=== PATIENT | female | born 1960 | race American Indian/Alaskan Native ===

== ENCOUNTER 2017-09-10 08:24 | Observation (INO) | payer BC ==
[2017-09-10 08:35] VITALS: BMI 32.9
[2017-09-10] MEDS ORDERED: Morphine 4 mg/ml ISec IVP STA ×3 (08:58→15:06)
--- NOTE | 2017-09-10 09:02 | ED PDOC ---
Arrival/HPI - General Chief Complaint: Back Pain Time Seen by Provider: 09/10/17 08:33 Historian: Patient, Spouse () - History of Present Illness Narrative History of Present Illness (Text): 09/10/17 09:00 A 57 year old female, whose past medical history includes hypertension, hyperlipidemia, fibromyalgia, and ovarian cancer, presents to the emergency department complaining of lower back pain for 1 week. Pain occurs right side radiating down to right buttock area. Patient reports seeing PMD and was referred to pain management. Patient has taken pain medications but has had no relief, and no relief from pain management therapy as well. Patient notes also experiencing suprapubic pain. Patient denies any diarrhea, any urinary symptoms , or any other complaints at this time. Also, patient mentions having had MRI in the past for similar complaint, however pain worse than it was before. Patient takes Percocet for fibromyalgia and pinched nerve in neck. Patient denies any chest pain or shortness of breath. Denies any dysuria or frequency. PMD: Dr. Amilcar Persaud Time/Duration: 1 week Symptom Onset: Sudden Symptom Course: Unchanged Past Medical History - Provider Review Nursing Documentation Reviewed: Yes - Infectious Disease Hx of Infectious Diseases: None - Reproductive Menopause: Yes - Cardiac Hx Hypertension: Yes - Musculoskeletal/Rheumatological Other/Comment: Pinched nerve in neck, rotator cuff tear. - Genitourinary/Gynecological Hx Ovarian Cancer: Yes - Psychiatric Hx Anxiety: No Hx Bipolar Disorder: No Hx Depression: No Hx Post Traumatic Stress Disorder: No Hx Schizophrenia: No Hx Substance Use: No - Surgical History Hx Section: Yes Other/Comment: Salping-oophorectomy - Anesthesia Hx Anesthesia: Yes Hx Anesthesia Reactions: No Hx Malignant Hyperthermia: No Family/Social History - Physician Review Nursing Documentation Reviewed: Yes Family/Social History: No Known Family HX Smoking Status: Never Smoked Hx Alcohol Use: No Hx Substance Use: No Allergies/Home Meds Allergies/Adverse Reactions: Allergies Penicillins Allergy (Verified 08/09/16 20:02) ANAPHYLAXIS Home Medications: Home Meds Medication Instructions Recorded Confirmed Ezetimibe [Zetia] 10 mg PO DAILY 06/08/15 06/08/15 Losartan [Cozaar] 50 mg PO DAILY 06/08/15 06/08/15 Oxycodone HCl/Acetaminophen 1 tab PO PRN PRN 06/08/15 06/08/15 [Percocet 10-325 mg Tablet] Review of Systems - Review of Systems Constitutional: absent: Fatigue, Fevers ENT: absent: Hearing Changes Respiratory: absent: SOB Cardiovascular: absent: Chest Pain Gastrointestinal: Abdominal Pain (suprapubic). absent: Diarrhea, Nausea, Vomiting Genitourinary Female: absent: Dysuria, Frequency, Hematuria, Urine Output Changes Musculoskeletal: Back Pain (lower back pain radiating down to right buttock area ) Skin: absent: Rash Neurological: absent: Headache, Dizziness, Focal Weakness Physical Exam - Physical Exam Narrative Physical Exam (Text): Head: Atraumatic. Normocephalic. Eyes: PERRL. EOMI. Conjunctivae are not pale. ENT: Mucous membranes are moist and intact. Oropharynx is clear and symmetric. Neck: Supple. Full ROM. No JVD. No lymphadenopathy. Cardiovascular: Regular rate. Regular rhythm. No murmurs, rubs, or gallops. Distal pulses are 2+ and symmetric. Pulmonary/Chest: No evidence of respiratory distress. Clear to auscultation bilaterally. No wheezing, rales or rhonchi. Abdominal: Mild suprapubic discomfort. Soft and non-distended. There is no tenderness. No rebound, guarding, or rigidity. No organomegaly. Good bowel sounds. No pulsatile masses. Back: No CVA tenderness. Pain to direct palpation to lower lumbar spine down to right buttock. No edema or erythema noted. Extremities: No edema. No cyanosis. No clubbing. Full range of motion in all extremities. No calf tenderness. Pain with straight leg raise to both legs. Skin: Skin is warm and dry. No petechiae. No purpura. Neurological: Alert, awake, and oriented. No saddle anesthesia. Motor and sensory exam intact. Psychiatric: Good eye contact. Normal interaction, affect, and behavior. Vital Signs Reviewed: Yes Vital Signs Temp Pulse Resp BP Pulse Ox 09/10/17 17:04 98.0 F 88 18 124/81 98 09/10/17 10:55 98.1 F 82 18 130/87 96 09/10/17 08:24 97.2 F L 91 H 18 152/94 H 99 Temperature: Afebrile Blood Pressure: Hypertensive Pulse: Regular Respiratory Rate: Normal Appearance: Positive for: Uncomfortable Pain Distress: Severe Mental Status: Positive for: Alert and Oriented X 3 Medical Decision Making ED Course and Treatment: 09/10/17 09:02 Impression: 57 year old female with lower back pain. Physical exam shows pain to palpation to lower lumbar spin down to right buttock; pain with straight leg test both legs; mild suprapubic discomfort. Differential Diagnosis included but are not limited to: Sciatica vs. Lumbar Disc Ridiculopathy vs. UTI vs. Renal Colic vs. Colitis. Plan: -- Labs -- Morphine -- toradol -- Urinalysis -- Reassess and disposition Prior Visits: Notes and results from previous visits were reviewed. Patient was last seen in the emergency department on 08/09/2016 for left-sided flank pain. Progress Notes: Patient states that she has had pain for one week and it will radiate from back to lower abdomen. On exam, no rash noted, she is afebile, no abdominal masses palpated. There is pain that is palpable worse with movement. Currently no incontinence noted, no saddle anesthesia. 09/10/17 10:23 After initial dosage of 2 mg Morphine given to patient, patient feels minimal relief of pain and still experiences severe lower back pain. Patient denies any nausea/dizziness. Additional Morphine to be ordered and reviewed side effects again with patient. Despite multiple doses of iv morphine, toradol and po valium, patient still with severe pain that is localized to lower back and is palpable. She has hx of ovarian ca. CT abdomen/pelvis results reviewed with patient and family, limitiations of imaging studeies reviewed. Due to persistence of pain despite multiple boluses of iv pain medication, as well as failure of outpatient treatment (patient did PT and took Percocet during the week), will admit for intractable back pain, serial exams. Case d/w Dr. Hernandez, on-call physician, accepts patient to her service. 09/10/17 17:08 Blood pressure improved. Denies headache, denies chest pain or shortness of breath. - Lab Interpretations Lab Results: 09/10/17 09:30 09/10/17 09:30 Lab Results 09/10/17 12:30: Urine Color Yellow, Urine Appearance Clear, Urine pH 6.0, Ur Specific [place] 1.020, Urine Protein Negative, Urine Glucose (UA) Negative, Urine Ketones Negative, Urine Blood Negative, Urine Nitrate Negative, Urine Bilirubin Negative, Urine Urobilinogen 0.2, Ur Leukocyte Esterase Negative 09/10/17 09:30: Sodium 140, Potassium 4.3, Chloride 104, Carbon Dioxide 26, Anion Gap 15, BUN 13, Creatinine 0.9, Est GFR ( Amer) > 60, Est GFR (Non- Af Amer) > 60, Random Glucose 87, Calcium 9.4, Total Bilirubin 0.5, AST 31, ALT 26, Alkaline Phosphatase 65, Total Protein 7.9, Albumin 4.5, Globulin 3.4, Albumin/Globulin Ratio 1.3 09/10/17 09:30: WBC 8.1, RBC 3.92, Hgb 12.5, Hct 37.1, MCV 94.6, MCH 31.9, MCHC 33.7, RDW 12.8, Plt Count 346, MPV 9.5, Gran % 61.5, Lymph % (Auto) 31.2, Vance % (Auto) 5.0, Eos % (Auto) 2.2, Baso % (Auto) 0.1, Gran # 4.96, Lymph # (Auto) 2.5, Vance # (Auto) 0.4, Eos # (Auto) 0.2, Baso # (Auto) 0.01 I have reviewed the lab results: Yes - RAD Interpretation Radiology Orders: 09/10/17 11:05 ABD & PELVIS W/O PO OR IV CONT [CT] Stat - Medication Orders Current Medication Orders: Discontinued Medications Diazepam (Valium) 2 mg PO ONCE ONE PRN Reason: Protocol Stop: 09/10/17 13:26 Last Admin: 09/10/17 13:34 Dose: 2 mg Ketorolac Tromethamine (Toradol) 30 mg IVP ONCE ONE Stop: 09/10/17 08:59 Last Admin: 09/10/17 09:20 Dose: 30 mg MAR Pain Assessment Document 09/10/17 09:20 HITESH (Rec: 09/10/17 10:06 [id number]) Pain Reassessment Is this a pain reassessment? No Sleep Is patient sleeping during reassessment? No Presence of Pain Presence of Pain Yes IVP Administration Document 09/10/17 09:20 HITESH (Rec: 09/10/17 10:06 HITESH [id number]) Charges for Administration # of IVP Administrations 1 Morphine Sulfate (Morphine) 2 mg IVP STAT STA Stop: 09/10/17 08:59 Last Admin: 09/10/17 09:20 Dose: 2 mg MAR Pain Assessment Document 09/10/17 09:20 SZA (Rec: 09/10/17 10:04 SZA [id number]) Pain Reassessment Is this a pain reassessment? No Sleep Is patient sleeping during reassessment? No Presence of Pain Presence of Pain Yes Pain Scale Used Pain Scale Used Numeric Description Description Intermittent Intensity of Pain at present 7 IVP Administration Document 09/10/17 09:20 SZA (Rec: 09/10/17 10:04 SZA [id number]) Charges for Administration # of IVP Administrations 1 Re-Assess: MAR Pain Assessment Document 09/10/17 10:20 SZA (Rec: 09/10/17 10:40 SZA [id number]) Pain Reassessment Is this a pain reassessment? No Sleep Is patient sleeping during reassessment? No Presence of Pain Presence of Pain Yes Pain Scale Used Pain Scale Used Numeric Description Description Intermittent Intensity of Pain at present 7 Morphine Sulfate (Morphine) 4 mg IVP STAT STA Stop: 09/10/17 10:22 Last Admin: 09/10/17 10:43 Dose: 4 mg MAR Pain Assessment Document 09/10/17 10:43 SZA (Rec: 09/10/17 10:43 SZA [id number]) Pain Reassessment Is this a pain reassessment? No Sleep Is patient sleeping during reassessment? No Presence of Pain Presence of Pain Yes Pain Scale Used Pain Scale Used Numeric Description Description Intermittent Intensity of Pain at present 7 IVP Administration Document 09/10/17 10:43 SZA (Rec: 09/10/17 10:43 SZA [id number]) Charges for Administration # of IVP Administrations 1 Morphine Sulfate (Morphine) 2 mg IVP STAT STA Stop: 09/10/17 15:07 Last Admin: 09/10/17 15:47 Dose: 2 mg MAR Pain Assessment Document 09/10/17 15:47 SZA (Rec: 09/10/17 15:47 SZA [id number]) Pain Reassessment Is this a pain reassessment? No Sleep Is patient sleeping during reassessment? No Presence of Pain Presence of Pain Yes Pain Scale Used Pain Scale Used Numeric Description Description Intermittent Intensity of Pain at present 5 IVP Administration Document 09/10/17 15:47 CECILYA (Rec: 09/10/17 15:47 SZA [id number]) Charges for Administration # of IVP Administrations 1 - Scribe Statement The provider has reviewed the documentation as recorded by the Carlyibarmando Ford Provider Scribe Attestation: All medical record entries made by the Scribe were at my direction and personally dictated by me. I have reviewed the chart and agree that the record accurately reflects my personal performance of the history, physical exam, medical decision making, and the department course for this patient. I have also personally directed, reviewed, and agree with the discharge instructions and disposition. Disposition/Present on Arrival - Present on Arrival Any Indicators Present on Arrival: No History of DVT/PE: No History of Uncontrolled Diabetes: No Urinary Catheter: No History of Decub. Ulcer: No History Surgical Site Infection Following: None - Disposition Have Diagnosis and Disposition been Completed?: Yes Diagnosis: Intractable back pain Disposition: HOME/ ROUTINE Disposition Time: 15:00 Patient Plan: Admission, Observation Patient Problems: Current Active Problems Problem Status Onset Intractable back pain Acute Condition: FAIR
[2017-09-10 09:52] LABS: BASO # 0.01 K/mm3 (0.0-2.0); BASO % 0.1 % (0.0-3.0); EOS # 0.2 (0.0-0.7); EOS % 2.2 % (1.5-5.0); GRAN # 4.96 (1.4-6.5); GRAN % 61.5 % (50.0-68.0); HEMOGLOBIN 12.5 g/dL (12.0-16.0); LYMPH # 2.5 (1.2-3.4); LYMPH % 31.2 % (22.0-35.0); MEAN CELL VOLUME 94.6 fl (80.0-105.0); MEAN CORPUSCULAR HEMOGLOBIN 31.9 pg (25.0-35.0); MEAN CORPUSCULAR HGB CONC 33.7 g/dl (31.0-37.0); MEAN PLATELET VOLUME 9.5 fl (7.0-11.0); MONO # 0.4 (0.1-0.6); RBC 3.92 10^6/uL (3.5-6.1); RED CELL DISTRIBUTION WIDTH 12.8 % (11.5-14.5); WHITE BLOOD COUNT 8.1 10^3/ul (4.5-11.0)
[2017-09-10 10:03] LABS: ALB/GLOB RATIO 1.3 (1.1-1.8); ALBUMIN 4.5 g/dL (3.0-4.8); ALT/SGPT 26 U/L (7-56); AST/SGOT 31 U/L (14-36); BLOOD UREA NITROGEN 13 mg/dL (7-21); CALCIUM 9.4 mg/dL (8.4-10.5); GFR AFRICAN-AMERICAN > 60; GFR NON-AFRICAN AMERICAN > 60
--- NOTE | 2017-09-10 11:54 | CT ---
PROCEDURE: CT Abdomen and Pelvis without intravenous contrast HISTORY: flank pain COMPARISON: None. TECHNIQUE: Without contrast. Contrast Dose: Radiation dose: Total exam DLP = Total exam DLP = 793 mGy-cm. This CT exam was performed using one or more of the following dose reduction techniques: Automated exposure control, adjustment of the mA and/or kV according to patient size, and/or use of iterative reconstruction technique. FINDINGS: LOWER THORAX: Unremarkable. LIVER: Unremarkable. No gross lesion or ductal dilatation. GALLBLADDER AND BILE DUCTS: Unremarkable. PANCREAS: Unremarkable. No gross lesion or ductal dilatation. SPLEEN: Unremarkable. ADRENALS: Unremarkable. No mass. KIDNEYS AND URETERS: Unremarkable. No hydronephrosis. No solid mass. There is a 5 mm peripheral stone or calcification in the lower pole of the left kidney. VASCULATURE: Unremarkable. No aortic aneurysm. Multiple surgical clips are seen in the retroperitoneal space adjacent to the IVC and aorta and proximal iliacs. BOWEL: Unremarkable. No obstruction. No gross mural thickening. Mild constipation APPENDIX: Unremarkable. Normal appendix. PERITONEUM: Unremarkable. No free fluid. No free air. LYMPH NODES: Unremarkable. No enlarged lymph nodes. BLADDER: Unremarkable. REPRODUCTIVE: Unremarkable. BONES: No acute fracture. OTHER FINDINGS: None. IMPRESSION: No acute findings. No evidence of urolithiasis
[2017-09-10 12:46] LABS: URINE BILIRUBIN NEGATIVE (NEGATIVE); URINE BLOOD NEGATIVE (NEGATIVE); URINE GLUCOSE (UA) NEGATIVE (NEGATIVE); URINE LEUKOCYTE ESTERASE NEGATIVE Leu/uL (NEGATIVE); URINE PROTEIN NEGATIVE mg/dL (<30 mg/dL); URINE UROBILINOGEN 0.2 E.U./dL (<1 E.U./dL)
[2017-09-10 12:47] LABS: URINE APPEARANCE CLEAR (CLEAR); URINE COLOR YELLOW (YELLOW)
[2017-09-10] MEDS ORDERED: Morphine 5 MG/ML SYRINGE IVP PRN (17:46)
[2017-09-10 18:26] VITALS: O2SAT 99
[2017-09-10] MEDS: Morphine 4 mg/ml ISec IVP PRN (20:49)
[2017-09-10] MEDS: MethylPREDNISolone 40 mg Vial IV SCH (21:32)
[2017-09-11] MEDS ORDERED: Pneumococcal 23-Valent Vaccine IM ONE (00:37)
[2017-09-11] MEDS: Morphine 4 mg/ml ISec IVP PRN (02:13)
--- NOTE | 2017-09-11 02:29 | HP ---
HISTORY OF PRESENT ILLNESS: Patient is 57 years old, who came to emergency room because of lower back pain radiating to the right lower abdomen. Patient states this has been going on for almost a week. She went to see her PMD who give some medication. The pain has been radiating from the right lower back towards the right buttock area. She was seen by PMD who gave anti-inflammatories, referred her to pain management, and also gave physical therapy, but states she has not been getting any relief. Complaining of suprapubic discomfort; however, she does not have any nausea, vomiting, diarrhea, or any urinary symptoms. PAST MEDICAL HISTORY: Patient does have significant past medical history for; 1. Fibromyalgia. 2. Hypertension. 3. Hyperlipidemia. 4. History of ovarian CA. ALLERGIES: SHE IS ALLERGIC TO PENICILLIN. MEDICATIONS AT HOME: She is on losartan 50 mg daily, Percocet 10/325 mg every 6 hours p.r.n., and she is on Zetia 10 mg daily. SOCIAL HISTORY: She denies smoking, drinking, or alcohol use. REVIEW OF SYSTEMS: Significant for right lower quadrant and right lower back pain. PHYSICAL EXAMINATION: GENERAL: She is awake, alert, and able to communicate. VITAL SIGNS: She is afebrile, pulse 88, respiration 18, blood pressure 124/81. LUNGS: Bilateral good airflow. No rhonchi or crackle. HEART: S1 and S2 audible. ABDOMEN: Soft. No rebound or guarding. NEUROLOGICAL: She is awake and alert, able to communicate. She has no focal deficits and has palpable lower back pain. LABORATORY DATA: WBC is 8.1, hemoglobin 12, hematocrit 37, platelet of 340. Chemistry: Sodium 140, potassium 4.3, chloride 104, CO2 of 26, BUN 13, creatinine 0.9, blood sugar of 87. LFTs are within normal limits. Urinalysis is unremarkable. She has CT scan of the abdomen and pelvis done that is negative. ASSESSMENT: 1. Intractable back pain, failed outpatient treatment. 2. Hypertension. 3. History of fibromyalgia. PLAN: We are going to start the patient on p.o. antiinflammatory. I will give her small dose of steroids and order for an MRI of the lumbar spine and Dr. Crooks will be consulted. Also requested for physical therapy and follow up this patient in a.m. Pamela Hernandez MD [facility] # [id number]
[2017-09-11 07:46] VITALS: RESP 20
--- NOTE | 2017-09-11 09:33 | MRI ---
PROCEDURE: MR LUMBAR SPINE WITHOUT CONTRAST HISTORY: intractible back pain COMPARISON: None available. TECHNIQUE: Multiecho multiplanar sequences were performed through the lumbar spine without the use of intravenous contrast. FINDINGS: Normal lumbar lordosis. Vertebral body heights are preserved. Marrow signal unremarkable. Conus medullaris unremarkable at the level of T12 Paraspinal soft tissues are unremarkable. T12-L1: No disc herniation, spinal canal stenosis or neural foraminal narrowing. L1-2: No disc herniation, spinal canal stenosis or neural foraminal narrowing. L2-3: No disc herniation, spinal canal stenosis or neural foraminal narrowing. L3-4: No disc herniation, spinal canal stenosis or neural foraminal narrowing. L4-5: There is a small left-sided disc herniation. This indents the left side of the thecal sac and may be compressing the left L5 nerve root. Image 7 series 7 L5-S1: No disc herniation, spinal canal stenosis or neural foraminal narrowing. OTHER FINDINGS: None. IMPRESSION: L4-5. Small left-sided disc herniation which indents the left side of the thecal sac
[2017-09-11] MEDS: Morphine 5 MG/ML SYRINGE IVP PRN ×3 (10:12→21:09)
[2017-09-11] MEDS: MethylPREDNISolone 40 mg Vial IV SCH ×2 (14:16→21:09)
--- NOTE | 2017-09-11 18:59 | PN ---
DATE: 09/11/2017 SUBJECTIVE: The patient is 57 years old, came to emergency room because of intractable back pain. The patient states she was unable to move in her bed. She is having difficulty changing her side in the bed. Denies any weakness, numbness. Has limited mobility. PHYSICAL EXAMINATION GENERAL: She is awake, alert, oriented, complaining of pain. VITAL SIGNS: She is afebrile, pulse 79, respirations 20, blood pressure 145/91. LUNGS: Bilateral fair airflow. No rhonchi or crackle. HEART: S1 and S2 audible. ABDOMEN: Soft. Nontender. No rebound. No guarding. NEUROLOGIC: She is awake, alert, oriented. Has paraspinal discomfort and palpable tenderness. No motor or sensory deficit. Had MRI of the lumbar spine done that shows disk herniation between L5 and S1, between L4 and L5. Small left-sided disk herniation, which indents the left side of the thecal sac. ASSESSMENT: 1. Intractable back pain. 2. Lumbosacral radiculopathy. 3. Disk herniation. 4. Hypertension. PLAN: The patient refused to have Solu-Medrol. I explained to her at length. She is willing to take now. Start her on antiinflammatory. We will try the Lidoderm patch. I will request neurological evaluation also. Pamela Hernandez MD
[2017-09-12] MEDS ORDERED: POLYETHYLENE GLYCOL 3350 17 GM/Dose PACKET PO ONE (00:51)
[2017-09-12] MEDS ORDERED: Oxycodone/Acetaminophen 5/325 mg Tab PO PRN (06:50)
[2017-09-12 07:53] VITALS: BP 130/90; PULSE 108; TEMP 98.5
[2017-09-12] MEDS ORDERED: Lidocaine 5% Patch TD SCH (10:00)
[2017-09-12] MEDS: MethylPREDNISolone 40 mg Vial IV SCH (10:29)
--- NOTE | 2017-09-12 13:31 | CP.PCM.PCO ---
Physician Communication Note - Physician Communication Note Physician Communication Note: pt seen by dr rodríguez. continue with lyrica, sloumedrol , pain mx and PT. Assessment & Plan - Assessment and Plan (Free Text) Assessment: neuro: pt seen by Dr. RODRÍGUEZ. impression: Lumbosacral neuritis/L4-L5 left radiculopathy Plan: Physical therapy: lumbosacral therapeutic exercises, tens unit, usg therapy as outpt. c/w lyrica 50 mg po bid for neuropathic relief. c/w flexiril prn for back spasms. f/u with pain management for possible intervention. medrol dose pack. thanks Blanca CANTU
--- NOTE | 2017-09-12 20:27 | CON ---
DATE: HISTORY OF PRESENT ILLNESS: This is a 57-year-old female with past medical history of fibromyalgia, hypertension, hyperlipidemia, history of ovarian cancer, came to hospital with a low back pain radiating to right leg and the patient appears comfortable. Called to evaluate the patient. PAST MEDICAL HISTORY: As above. ALLERGIES: ALLERGIC TO PENICILLIN. MEDICATIONS: Losartan and Percocet. SOCIAL HISTORY: Does not smoke. Does not drink. REVIEW OF SYSTEMS: A 10-point review of system was negative except low back pain radiating to right leg. PHYSICAL EXAMINATION: HEENT: Normocephalic and atraumatic. NECK: Supple. NEUROLOGIC: Alert, awake, and oriented x3. No aphasia. Cranial nerves II through XII are tested. Pupils reactive. EOM intact. No facial asymmetry. Tongue midline. Motor examination: Moves all the extremities equally. Tone normal. Deep tendon reflexes 1+. Both plantars are downgoing. Sensory appears intact. Cerebellar: Gait normal. IMPRESSION: Low back pain secondary to lumbosacral radiculopathy secondary to the disk L4-L5 and the patient is ambulating, pain got better and the patient is ready to go home. Don Andresw MD
--- NOTE | 2017-09-13 11:56 | DS ---
HISTORY OF PRESENT ILLNESS: The patient is a 57-year-old, who was admitted with intractable back pain. Initially, patient refused IV steroids, but received two doses yesterday and this morning. She states she feels a lot better and minimal pain and wants to go home. PHYSICAL EXAMINATION: VITAL SIGNS: She is afebrile, pulse 108, respirations 20, blood pressure 130/90. LUNGS: Bilateral fair airflow. No rhonchi or crackle. HEART: S1 and S2 audible. ABDOMEN: Soft, nontender. No rebound. No guarding. NEUROLOGIC: She is awake, alert, oriented, communicative, and ambulatory. DATA: Her MRI of lumbar spine shows disk herniation between L4 and L5 with left side of thecal indentation. ASSESSMENT: 1. Lumbosacral radiculopathy. 2. Hypertension. 3. Morbid obesity. PLAN: The patient will be discharged home today. She was given prescription for Mobic 15 mg daily, mg 3 times a day and Medrol Dosepak. She will follow up with her PMD and spine doctor. Pamela Hernandez MD
== END 2017-09-12 12:58 | disposition home or self-care (01) ==
LOC: ED 08:24 → ERH 15:14 → 5RNO 21:03
PROVIDERS: ADMIT Internal Medicine; ATTEND Internal Medicine
DX: M51.17 Intervertebral disc disorders with radiculopathy, lumbosacral region (principal); I10 Essential (primary) hypertension; M79.7 Fibromyalgia; E66.01 Morbid (severe) obesity due to excess calories; Z68.32 Body mass index [BMI] 32.0-32.9, adult; E78.5 Hyperlipidemia, unspecified; Z85.43 Personal history of malignant neoplasm of ovary; Z88.0 Allergy status to penicillin
CPT/HCPCS: 72148; 74176; 80053; 81003; 85025; 96374; 96375; 96376; 97110; 97112; 97116; 97162; 99285; G0378; G8978; G8979; J1885; J2270; J2920